=== PATIENT | male | born 2000 | race Caucasian/White ===

== ENCOUNTER 2020-01-01 23:09 | Inpatient (IN) ==
[2020-01-01] MEDS ORDERED: cefTRIAXone SODIUM 1,000 MG/50 ML BAG IV STA (23:32)
[2020-01-01] MEDS ORDERED: ONDANSETRON INJ 2 MG/ML 2 ML VIAL IV STA (23:32)
[2020-01-01] MEDS: fentaNYL citrate 100 MCG/2 ML VIAL IV PRN (23:44)
[2020-01-01] MEDS ORDERED: SODIUM CHLORIDE 0.9% 1000ML 1,000 ML IV SCH (23:45)
[2020-01-02 00:02] LABS: Basophils # (auto) 0.01 K/uL (0-0.2); Basophils % (auto) 0.1 %; Eosinophils # (auto) 0.07 K/uL (0-0.5); Eosinophils % (auto) 0.7 %; Hematocrit (blood only) 43.3 % (42-52); Immature Granulocytes # (auto) 0.01 K/uL (0.00-0.02); Immature Granulocytes % (auto) 0.1 %; Lymphocytes # (auto) 0.46 K/uL (1.2-3.4); Lymphocytes % (auto) 4.6 %; Mean Corpuscular Hgb Conc 34.6 g/dL (32-36); Mean Corpuscular Volume 92.3 fL (80-100); Mean Platelet Volume 10.5 fL (7.4-10.4); Monocytes # (auto) 1.37 K/uL (0.11-0.59); Monocytes % (auto) 13.7 %; Neutrophils # (auto) 8.08 K/uL (1.4-6.5); Neutrophils % (auto) 80.8 %; Platelet Count 181 K/uL (130-400); RDW Coefficient of Variation 12.9 % (11.5-14.5); RDW Standard Deviation 43.3 fL (36.4-46.3); Red Blood Count 4.69 M/uL (4.7-6.1)
[2020-01-02 00:15] LABS: Albumin Level 4.4 gm/dl (3.4-5.0); BUN Creatinine Ratio 10.2 (10-20); Calcium 9.5 mg/dl (8.5-10.1); Creatinine Clr Calc Pharmacy 92.2 ml/min; Est GFR (African American) 86.4; Est GFR (Non-African American) 74.5
[2020-01-02 00:18] LABS: Albumin Globulin Ratio 1.1 (0.9-2); Bilirubin,Total 0.7 mg/dl (0.2-1); C Reactive Protein 4.42 mg/dl (0-0.29); Globulin 3.9 gm/dl (2.5-4.0); Total Protein 8.3 gm/dl (6.4-8.2)
[2020-01-02] MEDS ORDERED: IOVERSOL 100ml IV PRN (00:54)
[2020-01-02] MEDS ORDERED: VANCOMYCIN HCL 1,500 MG in SODIUM CHLORIDE 0.9% 500 ML IV ONE (01:15)
[2020-01-02] MEDS ORDERED: VANCOMYCIN CONSULT ACTIVE PRN (01:15)
[2020-01-02] MEDS: fentaNYL citrate 100 MCG/2 ML VIAL IV PRN (01:45)
--- NOTE | 2020-01-02 01:57 | Emergency Department Note ---
Entered by Naa Novak acting as a scribe for History of Present Illness General Chief complaint: Eye Problems Stated complaint: RIGHT EYE INFECTION Time Seen by Provider: 01/01/20 23:20 Source: patient History of Present Illness Onset (ago): day(s) 4 Location: face and right Pain Consistency: + other (worsening ) Maximum Pain Intensity: 10 Quality: + other (swelling ) Associated symptoms: + fever/chills and + other (positive right facial redness; positive right facial pain; positive right facial drainage) Treatments prior to arrival: NSAID (ibuprofen ) and other (bactrim ) The patient is a 19 year old male who presents to the Emergency Room with complaints of a worsening right facial swelling that began 4 days prior to arrival. The patient reports that his swelling began as a pimple near his right eye. He states that this area is red and painful. The patient reports drainage from this area beginning today. He reports fevers and chills. The patient states that he has been on Bactrim for this and has had 5 doses. He reports taking Iburpofen for pain. The patient denies any medical history. Home Medications Home Medications Medication Instructions Recorded Confirmed Type ibuprofen 600 mg PO QID 01/02/20 01/02/20 History sulfamethoxazole-trimethoprim 1 tab PO BID 01/02/20 01/02/20 History Allergies Allergy/AdvReac Type Severity Reaction Status Date / Time No Known Allergies Allergy Unverified 01/02/20 01:44 Past Med/Surg History Medical History No significant past medical history Social History Preferred Language: Lithuanian Feels Safe at Home: Yes Smoking Status: Never smoker Review of Systems See HPI for pertinent positives & negatives. and A total of 10 systems reviewed and were otherwise negative Physical Exam Vital Signs Vital Signs - 24 hr 01/01/20 23:16 01/01/20 23:48 01/01/20 23:51 Temperature 37.6 C H Temperature Source Oral Pulse Rate 114 H 108 H 112 H Pulse Rate from SpO2 Sensor 108 H 110 H Respiratory Rate 22 20 13 Respiratory Depth Normal Blood Pressure 151/84 H 134/74 Blood Pressure Mean 106 93 Pulse Oximetry 100 100 100 Oxygen Delivery Method Room Air Sepsis Recent Fever Within 48 Hours No Sepsis New/Unexplained Change in Mental Status No Sepsis Action Taken by Nursing No Action Required 01/02/20 00:00 01/02/20 00:01 01/02/20 00:10 Temperature Temperature Source Pulse Rate 109 H 111 H 111 H Pulse Rate from SpO2 Sensor 111 H 111 H 112 H Respiratory Rate 17 12 20 Respiratory Depth Blood Pressure 170/98 H Blood Pressure Mean 124 Pulse Oximetry 98 99 97 Oxygen Delivery Method Sepsis Recent Fever Within 48 Hours Sepsis New/Unexplained Change in Mental Status Sepsis Action Taken by Nursing 01/02/20 00:20 01/02/20 00:52 01/02/20 01:00 Temperature Temperature Source Pulse Rate 108 H 123 H Pulse Rate from SpO2 Sensor 108 H 120 H 124 H Respiratory Rate 21 24 Respiratory Depth Blood Pressure 127/70 Blood Pressure Mean 79 Pulse Oximetry 98 100 99 Oxygen Delivery Method Sepsis Recent Fever Within 48 Hours Sepsis New/Unexplained Change in Mental Status Sepsis Action Taken by Nursing 01/02/20 01:01 01/02/20 01:10 01/02/20 01:40 Temperature Temperature Source Pulse Rate 124 H 117 H 120 H Pulse Rate from SpO2 Sensor 123 H 117 H 118 H Respiratory Rate 23 19 13 Respiratory Depth Blood Pressure Blood Pressure Mean Pulse Oximetry 99 98 99 Oxygen Delivery Method Sepsis Recent Fever Within 48 Hours Sepsis New/Unexplained Change in Mental Status Sepsis Action Taken by Nursing 01/02/20 01:41 Temperature Temperature Source Pulse Rate 111 H Pulse Rate from SpO2 Sensor 112 H Respiratory Rate 23 Respiratory Depth Blood Pressure 144/84 H Blood Pressure Mean 104 Pulse Oximetry 97 Oxygen Delivery Method Sepsis Recent Fever Within 48 Hours Sepsis New/Unexplained Change in Mental Status Sepsis Action Taken by Nursing GENERAL: The patient is awake and alert. He is very anxious appearing. EYES: The conjunctivae are clear. The pupils are round and reactive. There is no pain with range of motion testing of the eyes. There is significant periorbital swelling and erythema especially on the right eye. There is also an area lateral to the infraorbital swelling which is draining purulent material. Cultures were obtained. EARS, NOSE, MOUTH AND THROAT: The nose is without any evidence of any deformity. Mucous membranes are moist. Tongue is midline. NECK: The neck is nontender and supple. RESPIRATORY: Normal respiratory effort is noted there is no evidence of wheezing rhonchi or rales CARDIOVASCULAR: Regular rate and rhythm noted there no murmurs rubs or gallops normal S1 normal S2. GASTROINTESTINAL: The abdomen is soft. Abdomen is nontender. MUSCULOSKELETAL/EXTREMITIES: There is no evidence of gross deformity full range of motion is noted in the hips and shoulders. SKIN: No pedal edema was noted. NEUROLOGIC: Patient is awake alert and oriented x3 strength is symmetric patellar reflexes are 2+ bilaterally Course Course 2327: Past medical records reviewed. The patient was evaluated in room A9B. A complete history and physical exam was performed. 0121: I discussed the case with Dr. Jar[facility] Hospitalist who accepts the patient for further evaluation. Administered Medications Fentanyl Citrate (Fentanyl Citrate) 50 mcg IV Q15M PRN PRN Reason: Pain Stop: 01/15/20 23:31 Last Admin: 01/02/20 01:45 Dose: 50 mcg Documented by: [id number] Admin: 01/01/20 23:44 Dose: 50 mcg Documented by: [id number] Vancomycin HCl 1,500 mg/ (Sodium Chloride) 530 mls @ 200 mls/hr IV NOW ONE Stop: 01/02/20 03:53 Last Admin: 01/02/20 01:46 Dose: 200 mls/hr Documented by: [id number] Ioversol (Optiray 320 100ml) 100 ml IV ONCE PRN PRN Reason: Interaction Checking Stop: 01/06/20 00:53 Last Admin: 01/02/20 00:55 Dose: 92 ml Documented by: [id number] Discontinued Medications Sodium Chloride (Nss 1000ml) 1,000 mls @ 999 mls/hr IV .Q1H1M YAKOV Stop: 01/02/20 00:45 Last Infusion: 01/02/20 00:58 Dose: 0 mls/hr Documented by: [id number] Admin: 01/01/20 23:44 Dose: 999 mls/hr Documented by: [id number] Ceftriaxone Sodium (Rocephin) 1,000 mg in 50 mls @ 100 mls/hr IV NOW STA Stop: 01/02/20 00:01 Last Infusion: 01/02/20 00:58 Dose: 0 mls/hr Documented by: [id number] Admin: 01/01/20 23:58 Dose: 100 mls/hr Documented by: [id number] Ondansetron HCl (Zofran) 4 mg IV NOW STA Stop: 01/01/20 23:33 Last Admin: 01/01/20 23:44 Dose: 4 mg Documented by: [id number] Medical Decision Making Differential Diagnosis Differential diagnosis includes etiologies such as cellulitis, abscess, MRSA infection, DVT, necrotizing fasciitis, dermatitis, drug eruption, as well as others were entertained. Medical Records Attestation: I reviewed the patient's medical records. Home Medications Current Medication List: was personally reviewed by me Laboratory Data Attestation: I reviewed the patient's lab results. Result diagrams: 01/01/20 23:46 01/01/20 23:46 Lab Results 01/01/20 01/01/20 01/01/20 Range/Units 23:46 23:46 23:46 WBC 10.00 (4.8-10.8) K/uL RBC 4.69 L (4.7-6.1) M/uL Hgb 15.0 (14.0-18.0) g/dL Hct 43.3 (42-52) % MCV 92.3 (80-100) fL MCH 32.0 (25-34) pg MCHC 34.6 (32-36) g/dL RDW Std Deviation 43.3 (36.4-46.3) fL RDW Coeff of Ceci 12.9 (11.5-14.5) % Plt Count 181 (130-400) K/uL MPV 10.5 H (7.4-10.4) fL Immature Gran % (Auto) 0.1 % Neut % (Auto) 80.8 % Lymph % (Auto) 4.6 % Beaufort % (Auto) 13.7 % Eos % (Auto) 0.7 % Baso % (Auto) 0.1 % Immature Gran # (Auto) 0.01 (0.00-0.02) K/uL Neut # (Auto) 8.08 H (1.4-6.5) K/uL Lymph # (Auto) 0.46 L (1.2-3.4) K/uL Beau[place] # (Auto) 1.37 H (0.11-0.59) K/uL Eos # (Auto) 0.07 (0-0.5) K/uL Baso # (Auto) 0.01 (0-0.2) K/uL ESR 37 H (0-14) mm/hr Sodium 136 (136-145) mmol/L Potassium 4.0 (3.5-5.1) mmol/L Chloride 104 (98-107) mmol/L Carbon Dioxide 27 (21-32) mmol/L Anion Gap 5.0 (3-11) BUN 14 (7-18) mg/dl Creatinine 1.35 (0.6-1.4) mg/dl POC Creatinine (0.6-1.3) mg/dl Est Cr Clr Drug Dosing 92.2 ml/min Est GFR ( Amer) 86.4 Est GFR (Non-Af Amer) 74.5 BUN/Creatinine Ratio 10.2 (10-20) Glucose 110 H (70-99) mg/dl Calcium 9.5 (8.5-10.1) mg/dl Total Bilirubin 0.7 (0.2-1) mg/dl AST 10 L (15-37) U/L ALT 21 (12-78) U/L Alkaline Phosphatase 81 (45-117) U/L C-Reactive Protein 4.42 H (0-0.29) mg/dl Total Protein 8.3 H (6.4-8.2) gm/dl Albumin 4.4 (3.4-5.0) gm/dl Globulin 3.9 (2.5-4.0) gm/dl Albumin/Globulin Ratio 1.1 (0.9-2) Procalcitonin (0-0.5) ng/ml 01/01/20 01/02/20 Range/Units 23:46 00:03 WBC (4.8-10.8) K/uL RBC (4.7-6.1) M/uL Hgb (14.0-18.0) g/dL Hct (42-52) % MCV (80-100) fL MCH (25-34) pg MCHC (32-36) g/dL RDW Std Deviation (36.4-46.3) fL RDW Coeff of Ceci (11.5-14.5) % Plt Count (130-400) K/uL MPV (7.4-10.4) fL Immature Gran % (Auto) % Neut % (Auto) % Lymph % (Auto) % Beaufort % (Auto) % Eos % (Auto) % Baso % (Auto) % Immature Gran # (Auto) (0.00-0.02) K/uL Neut # (Auto) (1.4-6.5) K/uL Lymph # (Auto) (1.2-3.4) K/uL Beau[place] # (Auto) (0.11-0.59) K/uL Eos # (Auto) (0-0.5) K/uL Baso # (Auto) (0-0.2) K/uL ESR (0-14) mm/hr Sodium (136-145) mmol/L Potassium (3.5-5.1) mmol/L Chloride (98-107) mmol/L Carbon Dioxide (21-32) mmol/L Anion Gap (3-11) BUN (7-18) mg/dl Creatinine (0.6-1.4) mg/dl POC Creatinine 1.2 (0.6-1.3) mg/dl Est Cr Clr Drug Dosing ml/min Est GFR ( Amer) Est GFR (Non-Af Amer) BUN/Creatinine Ratio (10-20) Glucose (70-99) mg/dl Calcium (8.5-10.1) mg/dl Total Bilirubin (0.2-1) mg/dl AST (15-37) U/L ALT (12-78) U/L Alkaline Phosphatase (45-117) U/L C-Reactive Protein (0-0.29) mg/dl Total Protein (6.4-8.2) gm/dl Albumin (3.4-5.0) gm/dl Globulin (2.5-4.0) gm/dl Albumin/Globulin Ratio (0.9-2) Procalcitonin 0.17 (0-0.5) ng/ml Imaging Data Radiologist's Impression: Radiology results as stated below per my review and th e radiologist's interpretation: CT FACIAL: Diffuse skin thickening and soft tissue swelling/edema in the right periorbital and right facial region concerning for soft tissue infection/cellulitis. Small peripherally enhancing fluid collection containing a single focus of gas in the right preseptal region, immediately anterior to the right globe measuring 11 x 23 x 5 mm concerning for preseptal infection and abscess. The right globe is symmetric with the left globe. No definite retro-orbital fat stranding or fluid. Radiologist: Timo Chavarria MD Study ready at 00:56 and initial results transmitted at 01:12 Blood Pressure Blood Pressure Findings: Elevated blood pressure Blood Pressure Disposition: further management by hospitalist MDM Narrative The patient is a 19-year-old male who presented to the emergency department for an evaluation of eye swelling. The patient noticed a small pimple beneath his right eye that he squeezed. After that episode he started noticing severe swelling. Currently the patient is incarcerated at the [facility]. He was started on Bactrim but his symptoms continue to worsen. On physical exam he has some drainage on the lateral aspect of the inferior orbital swelling. A good amount of purulent material was removed. The patient was treated with IV antibiotics in the emergency department. I discussed the patient's laboratory and radiographic studies with him. He was feeling somewhat improved on reevaluation. I discussed his case with the on-call [facility] hospitalist group. They have agreed to evaluate the patient in the emergency department for further management disposition. Impression & Plan Periorbital cellulitis, Facial abscess Discharge Plan Visit Data Chief Complaint: Eye Problems Stated Complaint: RIGHT EYE INFECTION ED Provider: Davon Coleman Discharge Problem: Periorbital cellulitis, Facial abscess Patient Disposition: Being Evaluated by Hospitalist Discharge Instructions Interventions: ED Discharge Assessment Last Done: 01/02/20 02:33 Forms Stand Alone Forms: My [facility] Prescriptions Prescriptions: No Action sulfamethoxazole-trimethoprim 800-160 mg Tablet 1 tab PO BID RF: 0 ibuprofen 600 mg Tablet 600 mg PO QID RF: 0 Referrals Referrals: Nicol MARIA [Primary Care Provider] - Discharge Problem: Periorbital cellulitis Qualifiers: Laterality: right Qualified Code(s): L03.213 - Periorbital cellulitis The scribe's documentation has been prepared under my direction and personally reviewed by me in its entirety. I confirm that the note above accurately reflects all work, treatment, procedures, and medical decision making performed by me.
--- NOTE | 2020-01-02 02:26 | History & Physical Report ---
Date of Service January 02, 2020 Assessment & Plan (1) Periorbital cellulitis: Alvin is a 19-year-old male with no past medical history who presents with 2 days of worsening right periorbital cellulitis. Right periorbital cellulitis CT face: Right periorbital and right facial diffuse skin thickening and soft tissue swelling/edema. Small enhancing fluid collection and a single focus of gas, draining. Additional focus concerning for preseptal cellulitis and abscess. No retro-orbital fat stranding or fluid. Clinical course and imaging consistent with right periorbital cellulitis without retro-orbital infection. Vancomycin IV Ophthalmology consulted General surgery consulted for potential I&D CBC daily Morphine 2 mg every 3 hours as needed for pain Tylenol 650mg every 4 hours Diet: N.p.o. IVF: NSS 100 cc/h DVT prophylaxis SCDs Position: Med/surg (2) Facial abscess: History of Present Illness Chief Complaint: Right periorbital cellulitis Primary Care Provider: CROW Esquivel is a 18-year-old male inmate of [facility] with no past medical history who presents with right orbital cellulitis. He reports that on Sunday he had a pimple around his eye and attempted to pop it, but had difficulty getting pus out of it. He reports that he tried very hard and applied a lot of pressure to pop it but he had recently been cleaning his boots so he thinks he rubbed both blue yi and dirt into it. Following that it became painful and red, and the swelling gradually increased until it rapidly worsened day of presentation to the emergency department. He endorses pain in his right eye on extraocular movements. He is unable to see out of his right eye due to swelling, unable to open his eyelids. He has been nauseous. He denies diarrhea or constipation. Denies fever, chills, sweats. No shortness of breath or chest pain. Denies other symptoms. Medical history: None Medical allergies: Denies Surgical history: None Social: Inmate of [facility]. No alcohol use in over a year. Denies tobacco use. Denies recreational drug use. Reports his medical decision-maker should he be capacitated is Joce Kyle (mother of his child) who can be reached at [phone]. 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 Feels Safe at Home: Yes Safety Concerns: Feels Safe At This Time Smoking Status: Never smoker Hx Alcohol Use: No Hx Substance Use: Yes substance use type: marijuana Last Used Substance Other:: Smoked about a year ago. Review of Systems Review of Systems: All systems reviewed & are unremarkable except as noted in HPI & below Physical Exam Physical Exam: General: A&Ox3. Cooperative. HEENT: Right eye with prominent periorbital swelling, erythema, and warmth. Infraorbital skin lesion draining clear and purulent material. Fluctuance appreciated without crepitus. Patient unable to open eye on his own, with gentle physical lid separation pupil is visualized and is reactive, non-clouded. EOM intact but with pain in the right eye. Pulm: CTAB A&P. -wheezes, -rales, -rhonchi. Symmetrical chest rise. No increase work of breathing. No respiratory distress. Cardiac: RRR, -mrg. Radial pulses intact and symmetrical. Abdominal: Nontender, nondistended, soft. BS present. Results & Data Vital Signs (Past 12 Hours) Vital Signs Temp Pulse Resp BP Pulse Ox 01/02/20 01:41 111 H 23 144/84 H 97 01/02/20 01:40 120 H 13 99 01/02/20 01:10 117 H 19 98 01/02/20 01:01 124 H 23 99 01/02/20 01:00 123 H 24 127/70 99 01/02/20 00:52 100 01/02/20 00:20 108 H 21 98 01/02/20 00:10 111 H 20 97 01/02/20 00:01 111 H 12 99 01/02/20 00:00 109 H 17 170/98 H 98 01/01/20 23:51 112 H 13 100 01/01/20 23:48 108 H 20 134/74 100 01/01/20 23:16 37.6 C H 114 H 22 151/84 H 100 Supervising Physician Co-Signing Physician Notes Patient was seen and examined by me personally. I reviewed the chart, the orders and discussed the case in detail with Dr. David He MD . I read this H&P and agree with its contents to entirety. Resident Activity Tracking Resident Involvement: Resident Care Provided Care Provided: Adult Hospital Medicine (1) Periorbital cellulitis Laterality: right Qualified Code(s): L03.213 - Periorbital cellulitis
[2020-01-02] MEDS ORDERED: ACETAMINOPHEN 325 MG TAB PO PRN (03:01)
[2020-01-02] MEDS: CLINDAMYCIN 600 MG in DEXTROSE 5% 50 ML IV SCH ×2 (05:07→16:05)
--- NOTE | 2020-01-02 06:39 | Pharmacy Report ---
Pharmacy Abx Initial Consult - Date of Service January 02, 2020 - Pharmacy Dosing Scope Date of Consult: 01/02/20 Consultation requested by: Dr. He Pharmacy is consulted to initiate Vancomycin IV dosing therapy, order appropriate labs and adjust drug dose/frequency. - Subjective The patient is a 19 year old M admitted on 01/02/20 02:25 from [facility] with Periorbital Cellulitis over his eye. He stated he had a pimple and he tried really hard to pop it then it became even worse. He presents to the ED for admission where Dr. He ordered Clindamycin and Vancomycin IV per consult. - Objective Height: 5 ft 11 in Weight: 73.8 kg Vital Signs (Past 12hrs): Vital Signs Temp Pulse Pulse Pulse Resp BP BP 01/02/20 04:48 107 H 16 01/02/20 03:04 37.5 C 125 H 16 121/65 01/02/20 02:37 160/87 H 01/02/20 02:31 118 H 17 01/02/20 02:30 120 H 17 01/02/20 02:20 122 H 16 01/02/20 02:10 115 H 15 01/02/20 02:00 117 H 13 180/84 H 01/02/20 01:50 110 H 19 01/02/20 01:41 111 H 23 144/84 H 01/02/20 01:40 120 H 13 01/02/20 01:10 117 H 19 01/02/20 01:01 124 H 23 01/02/20 01:00 123 H 24 127/70 01/02/20 00:52 01/02/20 00:20 108 H 21 01/02/20 00:10 111 H 20 01/02/20 00:01 111 H 12 01/02/20 00:00 109 H 17 170/98 H 01/01/20 23:51 112 H 13 01/01/20 23:48 108 H 20 134/74 01/01/20 23:16 37.6 C H 114 H 22 151/84 H Pulse Ox 01/02/20 04:48 98 01/02/20 03:04 98 01/02/20 02:37 01/02/20 02:31 98 01/02/20 02:30 97 01/02/20 02:20 98 01/02/20 02:10 98 01/02/20 02:00 98 01/02/20 01:50 95 01/02/20 01:41 97 01/02/20 01:40 99 01/02/20 01:10 98 01/02/20 01:01 99 01/02/20 01:00 99 01/02/20 00:52 100 01/02/20 00:20 98 01/02/20 00:10 97 01/02/20 00:01 99 01/02/20 00:00 98 01/01/20 23:51 100 01/01/20 23:48 100 01/01/20 23:16 100 Lab Results (24hrs): Laboratory Tests (24 Hours) 01/01/20 01/01/20 01/01/20 23:46 23:46 23:46 WBC Neut # (Auto) ESR 37 H Creatinine 1.35 Est Cr Clr Drug Dosing 92.2 C-Reactive Protein 4.42 H Procalcitonin 0.17 01/01/20 23:46 WBC 10.00 Neut # (Auto) 8.08 H ESR Creatinine Est Cr Clr Drug Dosing C-Reactive Protein Procalcitonin Micro Results: 01/01/20 23:30 Gram Stain - Pending Face Wound Culture - Pending - Risk Factors for Resistance * Resident in a fci or extended-care facility - Assessment & Plan Assessment 19 year old M with periorbital cellulitis Plan Vancomycin IV * Estimated PK Parameters: Vd 0.7 L/kg, Brady 0.081 hr-1, t1/2 8.8 hr * Loading dose: 1500 mg (~20 mg/kg) * Maintenance dose: 1250 mg IV (17 mg/kg) every 10 hours * Goal trough level : at least 15 mcg/mL * Trough level ordered prior to 1800 dose on 01/03/20 Pharmacy will continue to follow and will adjust dose/frequency as necessary. Thank you.
--- NOTE | 2020-01-02 06:58 | Billing Data ---
Date of Service January 02, 2020 Coding Level of Care Code 86279 Initial Inpt Care Lvl 3
[2020-01-02 07:09] LABS: Creatinine Clr Calc Pharmacy 105.2 ml/min; Est GFR (African American) 103.8; Est GFR (Non-African American) 89.5
--- NOTE | 2020-01-02 07:49 | CT Scan Report ---
CT facial bones w con CLINICAL HISTORY: 19 years-old Male presenting with right periorbital infection, redness and swelling , yellow drainage from the skin near the right eye, swollen eye. TECHNIQUE: Multidetector CT of the face was performed after the administration of intravenous contras t. IV contrast: 92 mL of Optiray 320. One or more dose lowering techniques were used consistent with the principles of ALARA (as low as reasonably achievable), including automatic exposure control, mA o r kV adjustment to individual patient size, and/or use of iterative reconstruction. COMPARISON: None. CT DOSE (mGy.cm): The estimated cumulative dose is 248.65 mGy.cm. FINDINGS: Keypunch Operators Supervisor topogram: Unremarkable. Extensive superficial soft tissue swelling and infiltration of the right face extending from the amparo andibular region to the right frontal scalp. This is primarily centered in the right periorbital fredi on. There is a significant degree of soft tissue fluid in the periorbital region on the right. There is also fluid and gas immediately superficial to the right globe possibly contained within the eyelid s. The right globe itself is normal. No post septal fat infiltration. The contents of the right orbit are normal. The left orbit is also normal. Patent vasculature. Grossly patent right cavernous sinus allowing for the phase of contrast. Limited intracranial evaluation within normal limits. Paranasal sinuses and mastoid air cells clear apart fro m trace polypoid mucosal thickening in the left maxillary sinus. The left mandibular central incisor is absent with the remainder of the teeth intact. Subcentimeter cervical lymph nodes are likely react vivian. Visualized portion of the aerodigestive tract patent. No filtration of the deeper fat planes. IMPRESSION: 1. Exuberant inflammatory changes in the right periorbital region and right face compatible with pre septal cellulitis and phlegmonous changes. 2. The fluid and gas immediately anterior to the right globe is likely contained within the eyelids. 3. No evidence to suggest post septal/orbital cellulitis. ACT 112: Negative or not required by law. Electronically signed by: David Riley M.D. 01/02/2020 7:47 AM
[2020-01-02] MEDS: MoRPHine SULFATE 2 MG/ML CARP IV PRN (08:06)
--- NOTE | 2020-01-02 08:46 | ENT Consultation ---
Date of Consultation January 02, 2020 Assessment & Plan (1) Facial abscess: immediate I and D needed History of Present Illness Reason for Consultation: abcess Attending Physician: Fanny Sorto MD History of Present Illness 19 yo R facial able unable to open R eye Allergies Allergy/AdvReac Type Severity Reaction Status Date / Time No Known Allergies Allergy Unverified 01/02/20 01:44 Home Medications Home Medications Medication Instructions Recorded Confirmed Type ibuprofen 600 mg PO QID 01/02/20 01/02/20 History sulfamethoxazole-trimethoprim 1 tab PO BID 01/02/20 01/02/20 History Patient History Medical History No significant past medical history Social History Preferred Language: Azerbaijani Communication Ability: Dyslexia 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 Feels Safe at Home: Yes Safety Concerns: Feels Safe At This Time Smoking Status: Never smoker Hx Alcohol Use: No Hx Substance Use: Yes substance use type: marijuana Last Used Substance Other:: Smoked about a year ago. Physical Exam Constitutional: + acute distress and + ill appearing Eyes: + eyelid abnormality (severe swelling, tender, unable to open even by me with force) ENMT: Nose: + facial exam abnormality (draining fistula right cheek, 3 cm fluctuent but tense swellin, red) Results & Data ([facility]) Vital Signs (Past 12 Hours) Vital Signs Temp Pulse Pulse Pulse Resp BP BP 01/02/20 08:00 38.8 C H 111 H 18 119/71 01/02/20 04:48 107 H 16 01/02/20 03:04 37.5 C 125 H 16 121/65 01/02/20 02:37 160/87 H 01/02/20 02:31 118 H 17 01/02/20 02:30 120 H 17 01/02/20 02:20 122 H 16 01/02/20 02:10 115 H 15 01/02/20 02:00 117 H 13 180/84 H 01/02/20 01:50 110 H 19 01/02/20 01:41 111 H 23 144/84 H 01/02/20 01:40 120 H 13 02/14/20 01:10 117 H 19 01/02/20 01:01 124 H 23 01/02/20 01:00 123 H 24 127/70 01/02/20 00:52 01/02/20 00:20 108 H 21 01/02/20 00:10 111 H 20 01/02/20 00:01 111 H 12 01/02/20 00:00 109 H 17 170/98 H 01/01/20 23:51 112 H 13 01/01/20 23:48 108 H 20 134/74 01/01/20 23:16 37.6 C H 114 H 22 151/84 H Pulse Ox 01/02/20 08:00 97 01/02/20 04:48 98 01/02/20 03:04 98 01/02/20 02:37 01/02/20 02:31 98 01/02/20 02:30 97 01/02/20 02:20 98 01/02/20 02:10 98 01/02/20 02:00 98 01/02/20 01:50 95 01/02/20 01:41 97 01/02/20 01:40 99 01/02/20 01:10 98 01/02/20 01:01 99 01/02/20 01:00 99 01/02/20 00:52 100 01/02/20 00:20 98 01/02/20 00:10 97 01/02/20 00:01 99 01/02/20 00:00 98 01/01/20 23:51 100 01/01/20 23:48 100 01/01/20 23:16 100
--- NOTE | 2020-01-02 09:12 | Anesthesiology Consultation ---
Date of Service January 02, 2020 Assessment & Plan (1) Encounter for pre-operative examination: Chart Review Chart Review: Acceptable Risk for Surgery and Patient NOT seen in Pre Admission Testing Consults Requested none ASA [id number] Proposed Anesthesia Anesthesia Type: General Risk / Benefits Reviewed With: PT / POA / Parent / Guardian, Accepts Plan and Informed Consent Obtained History Surgery Operation Date: 01/02/20 09:40 Proposed Procedures p Right Face Abscess Incision and Drainage - Yeni Gonzalez MD Height/Weight Height: 5 ft 11 in Weight: 73.8 kg Allergies Allergy/AdvReac Type Severity Reaction Status Date / Time No Known Allergies Allergy Unverified 01/02/20 01:44 Medications Home Medications Medication Instructions Recorded Confirmed Last Taken ibuprofen 600 mg PO QID 01/02/20 01/02/20 Unknown sulfamethoxazole-trimethoprim 1 tab PO BID 01/02/20 01/02/20 Unknown Active Medications Generic Name Dose Route Start Last Admin Trade Name Freq PRN Reason Stop Dose Admin Clindamycin Phosphate 600 mg/ 54 mls @ 100 mls/hr 01/02/20 04:00 01/02/20 05:52 Dextrose IV 01/12/20 03:59 Infused Q8H YAKOV Infusion Morphine Sulfate 2 mg 01/02/20 03:01 01/02/20 08:06 Morphine Sulfate IV 01/16/20 03:00 2 mg Q3H PRN Administration Pain NPO Date Last Intake of Fluids: 01/01/20 Time Last Intake of Fluids: 22:00 Date Last Intake of Solids: 01/01/20 Time Last Intake of Solids: 17:00 Past Medical History Medical History No significant past medical history Exercise / Class Metabolic Activity II 4-5 Yardwork/Stairs/Walk up hill Past Anesthesia History No Family Hx of Anesthesia Complications History of PONV No Hx of Motion Sickness Social History Smoking Status: Never smoker Hx Alcohol Use: No Hx Substance Use: Yes substance use type: marijuana Last Used Substance Other:: Smoked about a year ago. Review of Systems Positive for nausea Negative for chest pain or shortness of breath. Physical Exam Vital Signs Last Vital Signs Temp 39 C H 01/02/20 09:21 Pulse 111 H 01/02/20 09:21 Resp 20 01/02/20 09:21 BP 127/67 01/02/20 09:21 Pulse Ox 99 01/02/20 09:21 Constitutional not obese ENMT Mouth: + TMJ abnormality (Trizmus due to infection) and + small oral opening (Due to infection) Thyromental Distance: > or= 3.5 Finger Breadths Mallampati Class: III (Limited view due to infection) Neck normal visual inspection; neck extension not limited Respiratory normal respiratory effort Auscultation: lungs clear to auscultation bilaterally Cardiovascular Rate/Rhythm: regular rate and regular rhythm Heart Sounds: no murmur Neurologic moves all extremities Psychiatric Orientation: alert and oriented x 3 Testing Laboratory Results 01/01/20 23:46 01/02/20 06:41
[2020-01-02] MEDS ORDERED: STERILE IRRIGATING OPTH SOLUTION (BSS) 15ML ONE (09:32)
[2020-01-02] MEDS ORDERED: HYDROmorphone INJ 2 MG/ML SYR/VIAL IV PRN (09:36)
[2020-01-02] MEDS ORDERED: ATROPINE SULFATE 0.1 MG/ML 10ML SYR IV PRN (09:36)
[2020-01-02] MEDS ORDERED: fentaNYL citrate 100 MCG/2 ML VIAL IV PRN (09:36)
[2020-01-02] MEDS ORDERED: ONDANSETRON INJ 2 MG/ML 2 ML VIAL IV PRN (09:36)
[2020-01-02] MEDS ORDERED: ePHEDrine sulfate 50 MG/ML AMP IV PRN (09:36)
[2020-01-02] MEDS ORDERED: PROMETHAZINE HCL 12.5 MG in SODIUM CHLORIDE 0.9% 50 ML IV PRN (09:36)
[2020-01-02] MEDS ORDERED: fentaNYL citrate 100 MCG/2 ML VIAL ONE (09:51)
[2020-01-02] MEDS ORDERED: ONDANSETRON INJ 2 MG/ML 2 ML VIAL ONE (09:51)
[2020-01-02] MEDS ORDERED: GLYCOPYRROLATE 0.2 MG/ML VIAL ONE (09:51)
[2020-01-02] MEDS ORDERED: DEXAMETHASONE SOD INJ 4 MG/ML VIAL ONE (09:51)
[2020-01-02] MEDS ORDERED: MIDAZOLAM HCL 1 MG/ML 2ML VIAL ONE (09:51)
[2020-01-02] MEDS ORDERED: NEOSTIGMINE METHYLSULFATE 5 MG/5 ML SYR ONE (09:51)
[2020-01-02] MEDS ORDERED: PROPOFOL IV EMULSION 10 MG/ML 20 ML VIAL IV ONE (09:51)
[2020-01-02] MEDS ORDERED: LIDOCAINE HCL 2% 2 ML VIAL/AMP(20MG/ML) INFIL ONE (09:51)
[2020-01-02] MEDS ORDERED: DexMEDEtomidine HCL IV 100 MCG/ML VIAL ONE (09:59)
[2020-01-02] MEDS ORDERED: VANCOMYCIN HCL 1,250 MG in SODIUM CHLORIDE 0.9% 250 ML IV SCH ×2 (10:00→12:00)
[2020-01-02] MEDS ORDERED: ACETAMINOPHEN 1000 MG/100 ML IV IV ONE (10:13)
--- NOTE | 2020-01-02 10:51 | Operative Report ---
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 The incision was made at the site of drainage widening the drainage site with a #11 blade. The abscess cavity was probed using a mosquito hemostat following the track into the infraorbital region and breaking up all the loculations and then irrigating the abscess cavity clean after taking cultures. The abscess cavity was packed with iodoform gauze. He tolerated the procedure well was taken recovery in satisfactory condition. I attest to the content of the Intraoperative Record and any orders documented therein. Any exceptions are noted below.
[2020-01-02] MEDS ORDERED: LARYING-O-JET KIT (LTA) ONE (11:10)
[2020-01-02] MEDS ORDERED: SUCCINYLCHOLINE CHLORIDE 20 MG/ML 10 ML VIAL ONE (11:10)
[2020-01-02] MEDS ORDERED: ROCURONIUM BROMIDE 10 MG/ML 5 ML VIAL ONE (11:10)
--- NOTE | 2020-01-02 11:30 | Anesthesiology Progress Note ---
Date of Service January 02, 2020 Anesthesia Post Procedure Vital Signs Vital Signs: Temp Pulse Pulse Pulse Pulse Resp BP 01/02/20 11:25 103 H 18 01/02/20 11:15 103 H 19 01/02/20 11:05 105 H 19 01/02/20 10:58 38.0 C H 108 H 20 01/02/20 09:21 39 C H 111 H 20 01/02/20 08:00 38.8 C H 111 H 18 01/02/20 04:48 107 H 16 01/02/20 03:04 37.5 C 125 H 16 01/02/20 02:37 160/87 H 01/02/20 02:31 118 H 17 01/02/20 02:30 120 H 17 01/02/20 02:20 122 H 16 01/02/20 02:10 115 H 15 01/02/20 02:00 117 H 13 180/84 H 01/02/20 01:50 110 H 19 01/02/20 01:41 111 H 23 144/84 H 01/02/20 01:40 120 H 13 01/02/20 01:10 117 H 19 01/02/20 01:01 124 H 23 01/02/20 01:00 123 H 24 127/70 01/02/20 00:52 01/02/20 00:20 108 H 21 01/02/20 00:10 111 H 20 01/02/20 00:01 111 H 12 01/02/20 00:00 109 H 17 170/98 H 01/01/20 23:51 112 H 13 01/01/20 23:48 108 H 20 134/74 01/01/20 23:16 37.6 C H 114 H 22 151/84 H BP Pulse Ox 01/02/20 11:25 91/50 L 95 01/02/20 11:15 92/47 L 98 01/02/20 11:05 89/49 L 92 01/02/20 10:58 98/49 L 98 01/02/20 09:21 127/67 99 01/02/20 08:00 119/71 97 01/02/20 04:48 98 01/02/20 03:04 121/65 98 01/02/20 02:37 01/02/20 02:31 98 01/02/20 02:30 97 01/02/20 02:20 98 01/02/20 02:10 98 01/02/20 02:00 98 01/02/20 01:50 95 01/02/20 01:41 97 01/02/20 01:40 99 01/02/20 01:10 98 01/02/20 01:01 99 01/02/20 01:00 99 01/02/20 00:52 100 01/02/20 00:20 98 01/02/20 00:10 97 01/02/20 00:01 99 01/02/20 00:00 98 01/01/20 23:51 100 01/01/20 23:48 100 01/01/20 23:16 100 Pain Intensity Right Eye: Pain Intensity: 10 Transfer of Care Handoff Completed per policy Notes Mental Status: alert / awake / arousable and participated in evaluation Patient Amnestic to Procedure: Yes Nausea / Vomiting: adequately controlled Pain: adequately controlled Airway Patency, RR, SpO2: stable & adequate BP & HR: stable & adequate Hydration State: stable & adequate Anesthetic Complications: no major complications apparent and Pt Satisfied with anesthetic care
--- NOTE | 2020-01-02 11:39 | Surgery Consultation ---
Date of Consultation January 02, 2020 Assessment & Plan (1) Periorbital cellulitis: This patient has periorbital cellulitis with abscess formation. I feel it would be best managed by either ophthalmology or ENT. Thank you for allowing me to participate in this patient's care. I will sign off. Please let me know if there is any other services we can provide. History of Present Illness Reason for Consultation: We have been asked by Dr. Sorto to see this 19-year-old male who was admitted to the hospital with periorbital cellulitis. The patient states that he was "picking a zit" underneath and lateral to his right a 3 days ago. Following that he began to develop pain and swelling around the entire eye. There was some drainage from the area that he had been manipulating. He has had fever. He has never had a history of anything like this in the past. 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 Feels Safe at Home: Yes Safety Concerns: Feels Safe At This Time Smoking Status: Never smoker Hx Alcohol Use: No Hx Substance Use: Yes substance use type: marijuana Last Used Substance Other:: Smoked about a year ago. Review of Systems Review of Systems: All systems reviewed & are unremarkable except as noted in HPI & below Physical Exam Constitutional: well developed and well nourished Eyes: Severe erythema and swelling of the entire right periorbital region with a small amount of purulent drainage from a pinhole opening on the lateral aspect of the infraorbital ridge Neck: trachea midline Respiratory: normal respiratory effort, lungs clear to auscultation Cardiovascular: Rate/Rhythm: regular rate and regular rhythm Gastrointestinal (Abdomen): Inspection/Auscultation: normal bowel sounds; abdomen not distended Percussion/Palpation: abdomen soft; abdomen nontender Results & Data Vital Signs (Past 12 Hours) Vital Signs Temp Pulse Pulse Pulse Pulse Resp BP 01/02/20 11:25 103 H 18 01/02/20 11:15 103 H 19 01/02/20 11:05 105 H 19 01/02/20 10:58 38.0 C H 108 H 20 01/02/20 09:21 39 C H 111 H 20 01/02/20 08:00 38.8 C H 111 H 18 01/02/20 04:48 107 H 16 01/02/20 03:04 37.5 C 125 H 16 01/02/20 02:37 160/87 H 01/02/20 02:31 118 H 17 01/02/20 02:30 120 H 17 01/02/20 02:20 122 H 16 01/02/20 02:10 115 H 15 01/02/20 02:00 117 H 13 180/84 H 01/02/20 01:50 110 H 19 01/02/20 01:41 111 H 23 144/84 H 01/02/20 01:40 120 H 13 01/02/20 01:10 117 H 19 01/02/20 01:01 124 H 23 01/02/20 01:00 123 H 24 127/70 01/02/20 00:52 01/02/20 00:20 108 H 21 01/02/20 00:10 111 H 20 01/02/20 00:01 111 H 12 01/02/20 00:00 109 H 17 170/98 H 01/01/20 23:51 112 H 13 01/01/20 23:48 108 H 20 134/74 BP Pulse Ox 01/02/20 11:25 91/50 L 95 01/02/20 11:15 92/47 L 98 01/02/20 11:05 89/49 L 92 01/02/20 10:58 98/49 L 98 01/02/20 09:21 127/67 99 01/02/20 08:00 119/71 97 01/02/20 04:48 98 01/02/20 03:04 121/65 98 01/02/20 02:37 01/02/20 02:31 98 01/02/20 02:30 97 01/02/20 02:20 98 01/02/20 02:10 98 01/02/20 02:00 98 01/02/20 01:50 95 01/02/20 01:41 97 01/02/20 01:40 99 01/02/20 01:10 98 01/02/20 01:01 99 01/02/20 01:00 99 01/02/20 00:52 100 01/02/20 00:20 98 01/02/20 00:10 97 01/02/20 00:01 99 01/02/20 00:00 98 01/01/20 23:51 100 01/01/20 23:48 100 Laboratory Results 01/02/20 01/02/20 01/02/20 Range/Units 06:41 03:27 00:03 WBC (4.8-10.8) K/uL RBC (4.7-6.1) M/uL Hgb (14.0-18.0) g/dL Hct (42-52) % MCV (80-100) fL MCH (25-34) pg MCHC (32-36) g/dL RDW Std Deviation (36.4-46.3) fL RDW Coeff of Ceci (11.5-14.5) % Plt Count (130-400) K/uL MPV (7.4-10.4) fL Immature Gran % (Auto) % Neut % (Auto) % Lymph % (Auto) % Barber % (Auto) % Eos % (Auto) % Baso % (Auto) % Immature Gran # (Auto) (0.00-0.02) K/uL Neut # (Auto) (1.4-6.5) K/uL Lymph # (Auto) (1.2-3.4) K/uL Barber # (Auto) (0.11-0.59) K/uL Eos # (Auto) (0-0.5) K/uL Baso # (Auto) (0-0.2) K/uL ESR (0-14) mm/hr Sodium (136-145) mmol/L Potassium (3.5-5.1) mmol/L Chloride (98-107) mmol/L Carbon Dioxide (21-32) mmol/L Anion Gap (3-11) BUN (7-18) mg/dl Creatinine 1.16 (0.6-1.4) mg/dl POC Creatinine 1.2 (0.6-1.3) mg/dl Est Cr Clr Drug Dosing 105.2 ml/min Est GFR ( Amer) 103.8 Est GFR (Non-Af Amer) 89.5 BUN/Creatinine Ratio (10-20) Glucose (70-99) mg/dl Calcium (8.5-10.1) mg/dl Total Bilirubin (0.2-1) mg/dl AST (15-37) U/L ALT (12-78) U/L Alkaline Phosphatase (45-117) U/L C-Reactive Protein (0-0.29) mg/dl Total Protein (6.4-8.2) gm/dl Albumin (3.4-5.0) gm/dl Globulin (2.5-4.0) gm/dl Albumin/Globulin Ratio (0.9-2) Procalcitonin (0-0.5) ng/ml Nasal Screen MRSA (PCR) Negative (Negative) 01/01/20 01/01/20 01/01/20 Range/Units 23:46 23:46 23:46 WBC (4.8-10.8) K/uL RBC (4.7-6.1) M/uL Hgb (14.0-18.0) g/dL Hct (42-52) % MCV (80-100) fL MCH (25-34) pg MCHC (32-36) g/dL RDW Std Deviation (36.4-46.3) fL RDW Coeff of Ceci (11.5-14.5) % Plt Count (130-400) K/uL MPV (7.4-10.4) fL Immature Gran % (Auto) % Neut % (Auto) % Lymph % (Auto) % Barber % (Auto) % Eos % (Auto) % Baso % (Auto) % Immature Gran # (Auto) (0.00-0.02) K/uL Neut # (Auto) (1.4-6.5) K/uL Lymph # (Auto) (1.2-3.4) K/uL Barber # (Auto) (0.11-0.59) K/uL Eos # (Auto) (0-0.5) K/uL Baso # (Auto) (0-0.2) K/uL ESR 37 H (0-14) mm/hr Sodium 136 (136-145) mmol/L Potassium 4.0 (3.5-5.1) mmol/L Chloride 104 (98-107) mmol/L Carbon Dioxide 27 (21-32) mmol/L Anion Gap 5.0 (3-11) BUN 14 (7-18) mg/dl Creatinine 1.35 (0.6-1.4) mg/dl POC Creatinine (0.6-1.3) mg/dl Est Cr Clr Drug Dosing 92.2 ml/min Est GFR ( Amer) 86.4 Est GFR (Non-Af Amer) 74.5 BUN/Creatinine Ratio 10.2 (10-20) Glucose 110 H (70-99) mg/dl Calcium 9.5 (8.5-10.1) mg/dl Total Bilirubin 0.7 (0.2-1) mg/dl AST 10 L (15-37) U/L ALT 21 (12-78) U/L Alkaline Phosphatase 81 (45-117) U/L C-Reactive Protein 4.42 H (0-0.29) mg/dl Total Protein 8.3 H (6.4-8.2) gm/dl Albumin 4.4 (3.4-5.0) gm/dl Globulin 3.9 (2.5-4.0) gm/dl Albumin/Globulin Ratio 1.1 (0.9-2) Procalcitonin 0.17 (0-0.5) ng/ml Nasal Screen MRSA (PCR) (Negative) 01/01/20 Range/Units 23:46 WBC 10.00 (4.8-10.8) K/uL RBC 4.69 L (4.7-6.1) M/uL Hgb 15.0 (14.0-18.0) g/dL Hct 43.3 (42-52) % MCV 92.3 (80-100) fL MCH 32.0 (25-34) pg MCHC 34.6 (32-36) g/dL RDW Std Deviation 43.3 (36.4-46.3) fL RDW Coeff of Ceci 12.9 (11.5-14.5) % Plt Count 181 (130-400) K/uL MPV 10.5 H (7.4-10.4) fL Immature Gran % (Auto) 0.1 % Neut % (Auto) 80.8 % Lymph % (Auto) 4.6 % Barber % (Auto) 13.7 % Eos % (Auto) 0.7 % Baso % (Auto) 0.1 % Immature Gran # (Auto) 0.01 (0.00-0.02) K/uL Neut # (Auto) 8.08 H (1.4-6.5) K/uL Lymph # (Auto) 0.46 L (1.2-3.4) K/uL Barber # (Auto) 1.37 H (0.11-0.59) K/uL Eos # (Auto) 0.07 (0-0.5) K/uL Baso # (Auto) 0.01 (0-0.2) K/uL ESR (0-14) mm/hr Sodium (136-145) mmol/L Potassium (3.5-5.1) mmol/L Chloride (98-107) mmol/L Carbon Dioxide (21-32) mmol/L Anion Gap (3-11) BUN (7-18) mg/dl Creatinine (0.6-1.4) mg/dl POC Creatinine (0.6-1.3) mg/dl Est Cr Clr Drug Dosing ml/min Est GFR ( Amer) Est GFR (Non-Af Amer) BUN/Creatinine Ratio (10-20) Glucose (70-99) mg/dl Calcium (8.5-10.1) mg/dl Total Bilirubin (0.2-1) mg/dl AST (15-37) U/L ALT (12-78) U/L Alkaline Phosphatase (45-117) U/L C-Reactive Protein (0-0.29) mg/dl Total Protein (6.4-8.2) gm/dl Albumin (3.4-5.0) gm/dl Globulin (2.5-4.0) gm/dl Albumin/Globulin Ratio (0.9-2) Procalcitonin (0-0.5) ng/ml Nasal Screen MRSA (PCR) (Negative) Diagnostic Findings CT facial bones w con CLINICAL HISTORY: 19 years-old Male presenting with right periorbital infection, redness and swelling, yellow drainage from the skin near the right eye, swollen eye. TECHNIQUE: Multidetector CT of the face was performed after the administration of intravenous contrast. IV contrast: 92 mL of Optiray 320. One or more dose lowering techniques were used consistent with the principles of ALARA (as low as reasonably achievable), including automatic exposure control, mA or kV adjustment to individual patient size, and/or use of iterative reconstruction. COMPARISON: None. CT DOSE (mGy.cm): The estimated cumulative dose is 248.65 mGy.cm. FINDINGS: Fund Accounting Manager topogram: Unremarkable. Extensive superficial soft tissue swelling and infiltration of the right face extending from the premandibular region to the right frontal scalp. This is primarily centered in the right periorbital region. There is a significant de gree of soft tissue fluid in the periorbital region on the right. There is also fluid and gas immediately superficial to the right globe possibly contained within the eyelids. The right globe itself is normal. No post septal fat infiltration. The contents of the right orbit are normal. The left orbit is also normal. Patent vasculature. Grossly patent right cavernous sinus allowing for the phase of contrast. Limited intracranial evaluation within normal limits. Paranasal sinuses and mastoid air cells clear apart from trace polypoid mucosal thickening in the left maxillary sinus. The left mandibular central incisor is absent with the remainder of the teeth intact. Subcentimeter cervical lymph nodes are likely reactive. Visualized portion of the aerodigestive tract patent. No filtration of the deeper fat planes. IMPRESSION: 1. Exuberant inflammatory changes in the right periorbital region and right face compatible with preseptal cellulitis and phlegmonous changes. 2. The fluid and gas immediately anterior to the right globe is likely contained within the eyelids. 3. No evidence to suggest post septal/orbital cellulitis. (1) Periorbital cellulitis Laterality: right Qualified Code(s): L03.213 - Periorbital cellulitis
[2020-01-02] MEDS: AMPICILLIN/SULBACTAM SOD 3,000 MG in 0.9 % SODIUM CHLORIDE 100 ML IV SCH ×2 (14:34→20:10)
[2020-01-02] MEDS ORDERED: LACTATED RINGER'S 1,000 ML IV SCH (14:45)
--- NOTE | 2020-01-02 14:47 | Hospitalist Progress Note ---
Date of Service January 02, 2020 Assessment & Plan (1) Periorbital cellulitis: 19-year-old otherwise healthy male presents with 2 days of worsening right periorbital cellulitis. Now s/p abscess drainage on Ampicillin sulbactam. Sepsis in the setting of right periorbital cellulitis with abscess CT face: Right periorbital and right facial region diffuse skin thickening and soft tissue swelling/edema. Small enhancing fluid collection with a single focus of gas anterior to R globe [id number] concerning for abscess. No retro- orbital fat stranding or fluid -Febrile to 38.8 and tachycardic to 120s with normal BP and WBC ct -Wound Cx pending -ESR 37, CRP 4.4, procal 0.17, nasal MRSA negative -S/p abscess drainage by Dr. Gonzalez, ENT Received Clindamycin and Vancomycin IV initially now on Amp/sulbactam -Pain control: Morphine 2 mg every 3 hours as needed for pain and Tylenol 650mg every 4 hours -On IVFs LR 125cc/hr -Continue to monitor Diet: Regular diet IVF: LR 125cc/hr DVT prophylaxis SCDs Position: Med/surg (2) Facial abscess: Admission and Anticipated Discharge Date Admission Date: January 02, 2020 Supervising Physician Co-Signing Physician Notes Resident Physician Supervision Note: I independently interviewed and examined the patient and verified the barillas history and physical, reviewed labs and image studies, discussed the case with the resident Dr. Roger and agree with the findings and care plan. Subjective This AM pt was resting in bed when examined and reported persistent difficulty opening R eye, and pain. Continues to have drainage from lower eyelid region. Otherwise denied any headache, cp, sob, abdominal pain, nausea, vomiting, dysuria Review of Systems Review of Systems: As per HPI Physical Exam Physical Exam: General: In NAD HEENT: R eye: severe periorbital edema and TTP, unable to open R eye, edema/erythema extends to R maxillary region, and nasal septum, draining fistula on R check with lower eye lid fluctuance Neuro: A&O x 4 Pulm: CTAB equal breath sounds bilaterally CV: RRR, no m/r/g Abdomen:+BS, no TTP in all quadrants, non-distended LE: no LE edema, no calf TTP Results & Data ([facility]) Vital Signs (Past 12 Hours) Vital Signs Temp Pulse Pulse Pulse Resp BP Pulse Ox 01/02/20 14:00 36.9 C 112 H 16 109/61 99 01/02/20 13:30 97 H 16 105/60 98 01/02/20 12:30 37.4 C 88 18 98/57 L 97 01/02/20 12:03 37.6 C H 103 H 20 118/64 96 01/02/20 11:35 37.9 C H 102 H 20 106/48 L 96 01/02/20 11:25 103 H 18 91/50 L 95 01/02/20 11:15 103 H 19 92/47 L 98 01/02/20 11:05 105 H 19 89/49 L 92 01/02/20 10:58 38.0 C H 108 H 20 98/49 L 98 01/02/20 09:21 39 C H 111 H 20 127/67 99 01/02/20 08:00 38.8 C H 111 H 18 119/71 97 01/02/20 04:48 107 H 16 98 01/02/20 03:04 37.5 C 125 H 16 121/65 98 Resident Activity Tracking Resident Involvement: Resident Care Provided Care Provided: Adult Hospital Medicine (1) Periorbital cellulitis Laterality: right Qualified Code(s): L03.213 - Periorbital cellulitis
[2020-01-02] MEDS: SODIUM CHLORIDE 0.9% 1000ML 1,000 ML IV SCH (21:00)
[2020-01-03] MEDS: AMPICILLIN/SULBACTAM SOD 3,000 MG in 0.9 % SODIUM CHLORIDE 100 ML IV SCH ×2 (00:57→06:16)
[2020-01-03] MEDS: SODIUM CHLORIDE 0.9% 1000ML 1,000 ML IV SCH (06:16)
[2020-01-03 06:22] LABS: Basophils # (auto) 0.01 K/uL (0-0.2); Basophils % (auto) 0.1 %; Eosinophils # (auto) 0.05 K/uL (0-0.5); Eosinophils % (auto) 0.5 %; Hematocrit (blood only) 38.3 % (42-52); Immature Granulocytes # (auto) 0.02 K/uL (0.00-0.02); Immature Granulocytes % (auto) 0.2 %; Lymphocytes % (auto) 12.4 %; Mean Corpuscular Hemoglobin 31.7 pg (25-34); Mean Corpuscular Hgb Conc 33.9 g/dL (32-36); Mean Corpuscular Volume 93.4 fL (80-100); Mean Platelet Volume 10.1 fL (7.4-10.4); Monocytes # (auto) 1.46 K/uL (0.11-0.59); Monocytes % (auto) 15.1 %; Neutrophils # (auto) 6.95 K/uL (1.4-6.5); Neutrophils % (auto) 71.7 %; Platelet Count 191 K/uL (130-400); RDW Coefficient of Variation 12.7 % (11.5-14.5); RDW Standard Deviation 43.2 fL (36.4-46.3); White Blood Count 9.69 K/uL (4.8-10.8)
[2020-01-03 06:50] LABS: Calcium 8.5 mg/dl (8.5-10.1); Creatinine Clr Calc Pharmacy 120.8 ml/min; Est GFR (African American) 122.7; Est GFR (Non-African American) 105.8; Potassium 3.9 mmol/L (3.5-5.1)
[2020-01-03] MEDS: MoRPHine SULFATE 2 MG/ML CARP IV PRN ×3 (08:19→23:58)
--- NOTE | 2020-01-03 08:21 | Surgery Progress Note ---
Date of Service January 03, 2020 Assessment & Plan (1) Periorbital cellulitis: iodoform advanced 1 inch, cleaned (2) Facial abscess: maintain antibiotics IV for staph. Subjective Still swollen and painful Physical Exam Constitutional: + ill appearing Eyes: + eyelid abnormality (right eye swollen shuts), + conjunctival abnormality (left conjuntival swelling) and + abnormal light reflex (still unable to see right eye) Results & Data Vital Signs (Past 12 Hours) Vital Signs Temp Pulse Resp BP Pulse Ox 01/03/20 07:55 37.1 C 88 14 129/79 97 01/03/20 03:11 37.4 C 89 16 136/65 98 01/02/20 22:58 37.2 C 99 H 18 112/64 97 01/02/20 20:37 37.0 C 97 H 16 122/73 97 (1) Periorbital cellulitis Laterality: right Qualified Code(s): L03.213 - Periorbital cellulitis
[2020-01-03] MEDS ORDERED: VANCOMYCIN CONSULT ACTIVE PRN (09:03)
--- NOTE | 2020-01-03 09:06 | Hospitalist Progress Note ---
Date of Service January 03, 2020 Assessment & Plan (1) Periorbital cellulitis: Alvin is a 19-year-old otherwise healthy male who presented with 2 days of worsening right periorbital cellulitis. Sepsis in the setting of right periorbital cellulitis with abscess CT face: Right periorbital and right facial region diffuse skin thickening and soft tissue swelling/edema. Small enhancing fluid collection with a single focus of gas anterior to R globe [id number] concerning for abscess. No retro- orbital fat stranding or fluid -S/p abscess drainage day [address] Gonzalez, ENT -Wound culture growing MRSA switch antibiotics from Unasyn back to vancomycin. MRSA is sensitive to Bactrim, anticipate eventual discharge on oral Bactrim -Pain control: Morphine 2 mg every 3 hours as needed for pain and Tylenol 650mg every 4 hours -Last fever on 01/02 at 11 AMcontinue to trend fever curve -Discontinue IV fluids given improvement in vital signs, and tolerating p.o. intake Code status: FULL DVT prophylaxis: Low risk, SCDs Disposition: remains on Med/surg. Anticipate discharge on Sunday at earliest (2) Facial abscess: Admission and Anticipated Discharge Date Admission Date: January 02, 2020 Supervising Physician Co-Signing Physician Notes Resident Physician Supervision Note: I independently interviewed and examined the patient and verified the barillas history and physical, reviewed labs and image studies, discussed the case with the resident Dr. Sierra and agree with the findings and care plan. Subjective Alvin reports he feels much better today. He reports a decrease in the swelling on his face. He states that his pain has improved, and that the pain medication is helping him. He is still, however, unable to open his right eye. He is tolerating his diet without difficulty. Review of Systems Constitutional: no fever, no chills, no fatigue and no anorexia Respiratory: no cough and no dyspnea Cardiovascular: no chest pain Gastrointestinal: no abdominal pain, no vomiting and no change in bowel habits Physical Exam Constitutional: WD/WN, vitals as above Eyes: Unable to open right eye due to swelling ENMT: Extensive erythema and swelling noted to right maxillary region, exte nding up into the periorbital region. Dressing in place. Respiratory: normal respiratory effort, lungs clear to auscultation Cardiovascular: RRR, no murmur, no edema Gastrointestinal (Abdomen): normal bowel sounds, soft, nontender, no hepatosplenomegaly Results & Data ([facility]) Vital Signs (Past 12 Hours) Vital Signs Temp Pulse Resp BP Pulse Ox 01/03/20 07:55 37.1 C 88 14 129/79 97 01/03/20 03:11 37.4 C 89 16 136/65 98 01/02/20 22:58 37.2 C 99 H 18 112/64 97 Resident Activity Tracking Resident Involvement: Resident Care Provided Care Provided: Adult Hospital Medicine (1) Periorbital cellulitis Laterality: right Qualified Code(s): L03.213 - Periorbital cellulitis
[2020-01-03] MEDS ORDERED: VANCOMYCIN TROUGH ONE ×2 (09:30→15:30)
--- NOTE | 2020-01-03 09:51 | Pharmacy Report ---
Pharmacy Abx Dose Progress Nt - Date of Service January 03, 2020 - Pharmacy Dosing Scope The patient is currently receiving the following antimicrobial agents per Pharmacy consult: VANCOMYCIN - Objective Vital Signs (Past 12hrs): Vital Signs Temp Pulse Resp BP Pulse Ox 01/03/20 07:55 37.1 C 88 14 129/79 97 01/03/20 03:11 37.4 C 89 16 136/65 98 01/02/20 22:58 37.2 C 99 H 18 112/64 97 Lab Results (24hrs): Laboratory Tests (24 Hours) 01/03/20 01/03/20 05:58 05:58 WBC 9.69 Neut # (Auto) 6.95 H Creatinine 1.01 Est Cr Clr Drug Dosing 120.8 Micro Results: 01/01/20 23:30 Gram Stain - Final Face Wound Culture - Final Staph aureus MRSA 01/02/20 10:37 Gram Stain - Final Face Aerobic and Anaerobic Culture - Pending - Risk Factors for Resistance * Incarcerated - Assessment & Plan Assessment 19 year old M receiving initiated on IV Vanco 01/02 then switched to Unasyn. Pt switched back to vanco today in light of + MRSA facial cultures. Plan Patient meets criteria for vancomycin AUC dosing nomogram AUC/FERMIN is the preferred PK/PD target for vancomycin * Target AUC/FERMIN = 400-600 * AUC guided dosing is effective and associated with decreased risk of nephrotoxicity * Will order a trough level prior to the 5th dose to ensure safe and therapeutic levels. Pharmacy will continue to follow and will adjust dose/frequency as necessary. Thank you.
[2020-01-03] MEDS ORDERED: VANCOMYCIN HCL 1,750 MG in SODIUM CHLORIDE 0.9% 500 ML IV ONE (10:00)
[2020-01-03] MEDS: VANCOMYCIN HCL 1,250 MG in SODIUM CHLORIDE 0.9% 250 ML IV SCH (17:41)
[2020-01-03] MEDS ORDERED: VANCOMYCIN HCL 1,250 MG in SODIUM CHLORIDE 0.9% 500 ML IV SCH (18:00)
[2020-01-04] MEDS: VANCOMYCIN HCL 1,250 MG in SODIUM CHLORIDE 0.9% 250 ML IV SCH ×3 (01:57→18:01)
[2020-01-04 07:13] LABS: Creatinine Clr Calc Pharmacy 112.9 ml/min; Est GFR (African American) 113.1; Est GFR (Non-African American) 97.6
--- NOTE | 2020-01-04 07:32 | Hospitalist Progress Note ---
Date of Service January 04, 2020 Assessment & Plan (1) Periorbital cellulitis: Alvin is a 19-year-old otherwise healthy male who presented with 2 days of worsening right periorbital cellulitis. Sepsis in the setting of right periorbital cellulitis with abscess CT face: Right periorbital and right facial region diffuse skin thickening and soft tissue swelling/edema. Small enhancing fluid collection with a single focus of gas anterior to R globe [id number] concerning for abscess. No retro- orbital fat stranding or fluid -S/p abscess drainage day [address] Gonzalez, ENT -improving clinically, able to open right eye today -per Dr. Gonzalez, incision should be cleaned with hydrogen peroxide and dressing changed 4x/daily ->[facility], pt will remain hospitalized until Sunday for wound care -Wound culture growing MRSA continue vancomycin (day 2) -MRSA is sensitive to Bactrim, anticipate eventual discharge on oral Bactrim -Last fever on 01/02 at 11 AM - afebrile since -> can transition to p.o. bactrim on 01/05/2020 -> anticipate abx treatment for at least 7 days, can extend if erythema/swelling are still present by day 7 -Pain control: Morphine 2 mg every 3 hours as needed for pain and Tylenol 650mg every 4 hours Code status: FULL DVT prophylaxis: Low risk, ambulatory, SCDs Disposition: remains on Med/surg. Anticipate discharge on Sunday (2) Facial abscess: Admission and Anticipated Discharge Date Admission Date: January 02, 2020 Supervising Physician Co-Signing Physician Notes Resident Physician Supervision Note: I independently interviewed and examined the patient and verified the barillas history and physical, reviewed labs and image studies, discussed the case with the resident Dr. Sierra and agree with the findings and care plan. Subjective Alvin reports he feels the swelling around his eye has continued to improve. He notes since last night, he is able to open his right eye slightly, and has blurry vision when he does so. He denies fever, chills. He has been eating well. He is ambulating without difficulty. Review of Systems Constitutional: no fever and no anorexia Respiratory: no cough Cardiovascular: no chest pain Physical Exam Constitutional: WD/WN, vitals as above Respiratory: normal respiratory effort, lungs clear to auscultation Cardiovascular: RRR, no murmur, no edema Skin: erythema and swelling over right periorbital region. improved from yesterday. patient able to open right eye slightly and endorses blurry vision when he does so + drainage noted around R eye + dressing in place Results & Data ([facility]) Vital Signs (Past 12 Hours) Vital Signs Temp Pulse Resp BP Pulse Ox 01/03/20 23:25 37.0 C 87 16 134/80 97 Resident Activity Tracking Resident Involvement: Resident Care Provided Care Provided: Adult [facility] (1) Periorbital cellulitis Laterality: right Qualified Code(s): L03.213 - Periorbital cellulitis
[2020-01-04] MEDS: MoRPHine SULFATE 2 MG/ML CARP IV PRN ×3 (08:31→22:12)
--- NOTE | 2020-01-04 08:33 | Surgery Progress Note ---
Date of Service January 04, 2020 Assessment & Plan (1) Periorbital cellulitis: Finally better, continue Vancomycin for MRSA (2) Facial abscess: I probed open abcess cavity with Qtip and peroxide and advanced iodoform, instructed nursing Subjective Finally able to open eye but only a slit and able to see. Physical Exam Constitutional: + ill appearing Eyes: + eyelid abnormality (still swollen but less so, less tender, able to see when lid opened manuall) Results & Data Vital Signs (Past 12 Hours) Vital Signs Temp Pulse Resp BP BP Pulse Ox 01/04/20 07:51 37 C 92 H 16 126/75 97 01/03/20 23:25 37.0 C 87 16 134/80 97 (1) Periorbital cellulitis Laterality: right Qualified Code(s): L03.213 - Periorbital cellulitis
[2020-01-05] MEDS ORDERED: VANCOMYCIN TROUGH ONE (01:30)
[2020-01-05] MEDS: VANCOMYCIN HCL 1,250 MG in SODIUM CHLORIDE 0.9% 250 ML IV SCH ×2 (01:36→09:01)
[2020-01-05 01:49] LABS: Creatinine Clr Calc Pharmacy 120.8 ml/min; Est GFR (African American) 122.7; Est GFR (Non-African American) 105.8
--- NOTE | 2020-01-05 07:56 | Surgery Progress Note ---
Date of Service January 05, 2020 Assessment & Plan (1) Facial abscess: much better, will D/C peroxide and probing (2) Periorbital cellulitis: improved, start cortisporin ophthalmic ointment, will sign off for now, swelling should subside and still be ready for discharge Wed., please call me if any increase in swelling Subjective Improved, able to blink right eye, vision good, no diplopia Physical Exam Constitutional: WD/WN, vitals as above Eyes: + eyelid abnormality (much less swollen, vision good) and PERRL ENMT: incision opened with Qtip and H2O2, no sign of pus, iodoform gone Results & Data Vital Signs (Past 12 Hours) Vital Signs Temp Pulse Resp BP BP Pulse Ox 01/05/20 06:57 36.8 C 83 16 118/74 99 01/04/20 23:28 36.5 C 79 16 139/81 98 (1) Periorbital cellulitis Laterality: right Qualified Code(s): L03.213 - Periorbital cellulitis
--- NOTE | 2020-01-05 08:28 | Anesthesiology Progress Note ---
Date of Service January 05, 2020 Anesthesia Post Procedure Vital Signs Vital Signs: Temp Pulse Resp BP BP Pulse Ox 01/05/20 06:57 36.8 C 83 16 118/74 99 01/04/20 23:28 36.5 C 79 16 139/81 98 01/04/20 15:51 37.1 C 74 18 117/69 99 Pain Intensity Right Eye: Pain Intensity: 7 Notes Mental Status: alert / awake / arousable and participated in evaluation Patient Amnestic to Procedure: Yes Nausea / Vomiting: adequately controlled Pain: adequately controlled Airway Patency, RR, SpO2: stable & adequate BP & HR: stable & adequate Hydration State: stable & adequate Anesthetic Complications: no major complications apparent and Pt Satisfied with anesthetic care
[2020-01-05] MEDS: NEOMYC/POLYMYX/BACITR/HC OP OI 3.5 GM TUBE OP SCH ×2 (09:01→21:55)
--- NOTE | 2020-01-05 10:53 | Pharmacy Report ---
Pharmacy Abx Dose Short Note - Date of Service January 05, 2020 - Assessment & Plan Assessment 19 year old M receiving vancomycin for treatment of MRSA periorbital cellulitis Day # 3 of antimicrobial therapy. Of note, one of the MRSA isolates has an FERMIN of 2 for vancomycin. This is associated with increased likelihood of treatment failure. Should consider alternative agent such as sulfamethoxazole/trimethoprim based on available susceptibility data. Plan Vancomycin * Trough level of 15.5 mcg/mL is therapeutic * Continue dose of 1250 mg IV every 8 hours * Goal trough level for cellulitis : 10 to 20 mcg/mL * Will order follow-up trough if patient is to remain on vancomycin Pharmacy will continue to follow and will adjust dose/frequency as necessary. Thank you.
--- NOTE | 2020-01-05 14:57 | Hospitalist Progress Note ---
Date of Service January 05, 2020 Assessment & Plan (1) Periorbital cellulitis: Alvin is a 19-year-old otherwise healthy male who presented with 2 days of worsening right periorbital cellulitis. Hospitalized currently for wound dressings which would not be able to be done at [facility], anticpate discharge on SunJan 07 Sepsis in the setting of right periorbital cellulitis with abscess CT face: Right periorbital and right facial region diffuse skin thickening and soft tissue swelling/edema. Small enhancing fluid collection with a single focus of gas anterior to R globe [id number] concerning for abscess. No retro- orbital fat stranding or fluid -S/p abscess drainage day [address] Gonzalez, ENT -improving clinically, able to open right eye, denies changes to vision -per Dr. Gonzalez, re: facial abscess "much better, will D/C peroxide and probing". Re: pre-septal cellulitis: "improved, start cortisporin ophthalmic ointment, will sign off for now, swelling should subside and still be ready for discharge Sun., please call me if any increase in swelling" -Wound culture growing MRSA IV vancomycin for 2 days, will transition to PO Bactrim today 01/05 for at least 7 days of treatment. -Pain control: Morphine 2 mg every 3 hours as needed for pain and Tylenol 650mg every 4 hours Code status: FULL DVT prophylaxis: Low risk, ambulatory, SCDs Disposition: remains on Med/surg. Anticipate discharge on SundayJan 07 (2) Facial abscess: Admission and Anticipated Discharge Date Admission Date: January 02, 2020 Supervising Physician Co-Signing Physician Notes I personally examined the patient and verified all barillas points of history and exam, discussed case, and agree with decision making with Dr Asencio. Feeling okay. No new complaints. Vitals noted, in general he is awake and alert pleasant no distress. His right lower eyelid is quite swollen and purplish, not extremely tender no crepitus, open wound where I&D was performed no exudate. Facial cellulitispreseptalMRSAimproving nicely. Trial of Bactrim as oral antibiotic to finish out treatment. Continue local wound care. Per ENT, will need to be here another 2 days or so before it is safe to return him, given that his snf environment apparently has no infirmary. Otherwise as above Subjective Alvin states he feels like the eye is improving today. Has been able to move the eyeball and denies changes to vision. Also denies any headache, cough, runny nose, sore throat, dizziness, weakness, SOB, palpitations, abdominal pain, diarrhea or constipation, swelling in hands or feet or numbness or tingling anywhere. Review of Systems Review of Systems: All systems reviewed & are unremarkable except as noted in Subjective Physical Exam Physical Exam: General: Alert, oriented, sitting up in bed. No acute distress Skin: noted erythema to right eye Psych: Appropriate mood and affect Neuro: moves extremities appropriately HEENT: Right eye red, swollen, slit-like opening of eyelid with ointment on top. No noted crusting or discharge. Chest: Nontender to palpation. CV: RRR, Normal s1, s2. No murmurs appreciated Resp: Breath sounds clear bilaterally, no increased effort of breathing. No crackles/rhonchi/rales. Abdomen: Soft, nontender, nondistended. No guarding. No organomegaly appreciated. Extremities: No edema in lower extremities bilaterally. Results & Data ([facility]) Vital Signs (Past 12 Hours) Vital Signs Temp Pulse Resp BP Pulse Ox 01/05/20 06:57 36.8 C 83 16 118/74 99 Resident Activity Tracking Resident Involvement: Resident Care Provided Care Provided: Adult Hospital Medicine (1) Periorbital cellulitis Laterality: right Qualified Code(s): L03.213 - Periorbital cellulitis
--- NOTE | 2020-01-05 18:08 | Billing Data ---
Date of Service January 05, 2020 Coding Level of Care Code 33907 Subseq Hosp Care Lvl 2
[2020-01-05] MEDS: SULFAMETHOXAZOLE/TRIMETHOPRIM DS 800/160MG TAB PO SCH (21:55)
[2020-01-06] MEDS: NEOMYC/POLYMYX/BACITR/HC OP OI 3.5 GM TUBE OP SCH ×2 (07:49→20:41)
[2020-01-06] MEDS: SULFAMETHOXAZOLE/TRIMETHOPRIM DS 800/160MG TAB PO SCH ×2 (07:49→22:20)
--- NOTE | 2020-01-06 09:38 | Hospitalist Progress Note ---
Date of Service January 06, 2020 Assessment & Plan (1) Periorbital cellulitis: Alvin is a 19-year-old otherwise healthy male who presented with 2 days of worsening right periorbital cellulitis. Hospitalized currently for wound care which would not be able to be done at [facility], anticipate discharge on SunJan 07 Sepsis in the setting of right periorbital cellulitis with abscess CT face: Right periorbital and right facial region diffuse skin thickening and soft tissue swelling/edema. Small enhancing fluid collection with a single focus of gas anterior to R globe [id number] concerning for abscess. No retro- orbital fat stranding or fluid -S/p abscess drainage day [address] Gonzalez, ENT -improving clinically, able to open right eye, denies changes to vision -per Dr. Gonzalez 01/05, re: facial abscess "much better, will D/C peroxide and probing". Re: pre-septal cellulitis: "improved, start cortisporin ophthalmic ointment, will sign off for now, swelling should subside and still be ready for discharge Sun., please call me if any increase in swelling" -Wound culture growing MRSA IV vancomycin for 2 days, will transition to PO Bactrim today 01/05 for at least 7 days of treatment. -Continue bactrim PO. -Pain control: Morphine discontinued as pt has not required it since the . Continue Tylenol 650mg every 4 hours PRN. Code status: FULL DVT prophylaxis: Low risk, ambulatory, SCDs Disposition: remains on Med/surg. Anticipate discharge on SundayJan 07 (2) Facial abscess: Admission and Anticipated Discharge Date Admission Date: January 02, 2020 Supervising Physician Co-Signing Physician Notes I personally examined the patient and verified all barillas points of history and exam, discussed case, and agree with decision making with Dr Asencio. resting comfortably. guards note he has been moving eye more. Vitals noted, in general he is sleeping comfortably no distress. His right lower eyelid is less swollen and purple than before, appearing to improve quite a bit over last 24hrs. Facial cellulitispreseptalMRSAimproving nicely. continue Bactrim as oral antibiotic to finish out treatment. Continue local wound care. Per ENT, here to tomorrow before it is safe to discharge him, given that his [facility] environment apparently has no infirmary. Otherwise as above Subjective Alvin seen this AM. No acute events overnight. Denies fevers, chills or night sweats. Staets vision is still unchanged in the right eye, does not hurt with eye movement. Review of Systems Review of Systems: All systems reviewed & are unremarkable except as noted in Subjective Physical Exam Physical Exam: General: Alert, oriented, sitting up in bed. No acute distress Skin: noted erythema to right eye Psych: Appropriate mood and affect Neuro: moves extremities appropriately HEENT: Right eye red, swollen, slit-like opening of eyelid with ointment on top. No noted crusting or discharge. Chest: Nontender to palpation. CV: RRR, Normal s1, s2. No murmurs appreciated Resp: Breath sounds clear bilaterally, no increased effort of breathing. No crackles/rhonchi/rales. Abdomen: Soft, nontender, nondistended. No guarding. No organomegaly appreciated. Extremities: No edema in lower extremities bilaterally. Results & Data ([facility]) Vital Signs (Past 12 Hours) Vital Signs Temp Pulse Resp BP Pulse Ox 01/06/20 07:37 36.8 C 81 18 124/79 98 01/05/20 22:59 36.9 C 108 H 16 115/72 99 Resident Activity Tracking Resident Involvement: Resident Care Provided Care Provided: Adult Hospital Medicine (1) Periorbital cellulitis Laterality: right Qualified Code(s): L03.213 - Periorbital cellulitis
--- NOTE | 2020-01-06 16:44 | Billing Data ---
Date of Service January 06, 2020 Coding Level of Care Code 15893 Subseq Hosp Care Lvl 1
[2020-01-07 07:45] VITALS: BP 126/82; PULSE 81; TEMP 97.9; O2SAT 98
[2020-01-07] MEDS: SULFAMETHOXAZOLE/TRIMETHOPRIM DS 800/160MG TAB PO SCH (07:51)
[2020-01-07] MEDS: NEOMYC/POLYMYX/BACITR/HC OP OI 3.5 GM TUBE OP SCH (07:51)
--- NOTE | 2020-01-07 10:00 | Discharge Summary ---
Date of Service January 07, 2020 Admission HPI Per Admitting Provider Alvin is a 18-year-old male inmate of [facility] with no past medical history who presents with right jeremy-orbital cellulitis. He reports that on Sunday he had a pimple around his eye and attempted to pop it, but had difficulty getting pus out of it. He reports that he tried very hard and applied a lot of pressure to pop it but he had recently been cleaning his boots so he thinks he rubbed both blue kazakh and dirt into it. Following that it became painful and red, and the swelling gradually increased until it rapidly worsened day of presentation to the emergency department. He endorses pain in his right eye on extraocular movements. He is unable to see out of his right eye due to swelling, unable to open his eyelids. He has been nauseous. He denies diarrhea or constipation. Denies fever, chills, sweats. No shortness of breath or chest pain. Denies other symptoms. Medical history: None Medical allergies: Denies Surgical history: None Social: Inmate of [facility]. No alcohol use in over a year. Denies tobacco use. Denies recreational drug use. Reports his medical decision-maker should he be capacitated is Hobsontanesha Wright (mother of his child) who can be reached at [phone]. CODE STATUS: Full code Admission Exam Per Admitting Provider General: A&Ox3. Cooperative. HEENT: Right eye with prominent periorbital swelling, erythema, and warmth. Infraorbital skin lesion draining clear and purulent material. Fluctuance appreciated without crepitus. Patient unable to open eye on his own, with gentle physical lid separation pupil is visualized and is reactive, non-clouded. EOM intact but with pain in the right eye. Pulm: CTAB A&P. -wheezes, -rales, -rhonchi. Symmetrical chest rise. No increase work of breathing. No respiratory distress. Cardiac: RRR, -mrg. Radial pulses intact and symmetrical. Abdominal: Nontender, nondistended, soft. BS present. Principal Diagnosis Pre-septal cellulitis of the right eye Discharge Exam General: Alert, oriented, sitting up in bed. No acute distress Skin: noted erythema to right eye Psych: Appropriate mood and affect Neuro: moves extremities appropriately HEENT: Right eye still red, swollen but improved, greater opening of eyelid with ointment on top. No noted crusting or discharge. EOMI Chest: Nontender to palpation. CV: RRR, Normal s1, s2. No murmurs appreciated Resp: Breath sounds clear bilaterally, no increased effort of breathing. No crackles/rhonchi/rales. Abdomen: Soft, nontender, nondistended. No guarding. No organomegaly appreciated. Extremities: No edema in lower extremities bilaterally. Discharge Data Allergies Allergy/AdvReac Type Severity Reaction Status Date / Time No Known Allergies Allergy Unverified 01/02/20 01:44 Consultations 01/02/20 01:21 ED Decision to Admit Stat 01/02/20 03:01 Consult General Surgery Routine 01/02/20 08:27 Consult Otolaryngology (Head and Neck) Routine Procedures Performed Operation Date: 01/02/20 09:40 Actual Procedures p Incision and Drainage of right facial abscess(Right) - Yeni Gonzalez MD Ordered Studies 01/01/20 23:32 CT facial bones w con Urgent Hospital Course (1) Periorbital cellulitis: Alvin is a 19-year-old otherwise healthy male who presented with 2 days of worsening right periorbital cellulitis. Admitted on 01/02/2020 and discharged on 01/07/2020 back to the [facility] facility. Sepsis in the setting of right periorbital cellulitis with abscess CT face 01/01/2020, showed right periorbital and right facial region diffuse skin thickening and soft tissue swelling/edema. Small enhancing fluid collection with a single focus of gas anterior to R globe [id number] concerning for abscess. No retro-orbital fat stranding or fluid. -wound culture grew MRSA -S/p abscess drainage day [address] Gonzalez. -Received peroxide and probing of facial abscess daily after I&D by Dr. Gonzalez for an additional 2 days. -Day of discharge was only requiring Cortisporin ophthalmic ointment application to the right eye twice daily. -Please continue twice daily cortisporin application after discharge until infection resolved. -was treated with IV Vancomycin for 2 days, PO Bactrim for 3 days. -Discharged with an additional 5 days of Bactrim for a total of 10 days of treatment. Please take as directed. -Pain was controlled with morphine and tylenol 650mg q4h as needed. -Did not require pain control on day of discharge, nor for the prior two days. -Has a followup with Dr. Gonzalez scheduled on 01/12/2020 at 10AM. (2) Facial abscess: Total Time Total Time Spent Total Time Spent (In Minutes): See attending attestation Discharge Plan Discharge Items Patient Disposition: [facility] Facility Reason For Visit: R PERIORBITAL CELLULITIS Discharge Diagnosis: Right pre-septal cellulitis Activity: Per Instructions section Non-emergency contact: Primary Care Provider Call non-emergency contact if: your symptoms worsen, your pain is worsening, you have a fever, your wound has increased redness and your wound has increased drainage Follow-up/Referrals: Yeni Gonzalez MD [Surgeon] - 01/12/20 10:00 am (Please, follow up with Dr. Gonzalez early next week. *The office is located at [address] [place] [address] in [place]. To schedule the appointment, call the office at [phone].) Nicol MARIA [Primary Care Provider] - Diet: Regular Addtl Attending Provider Instructions: FACILITY DISCHARGE INSTRUCTIONS: Alvin is a 19-year-old otherwise healthy male who presented with 2 days of worsening right periorbital cellulitis. Right periorbital cellulitis with abscess -Abscess incised and drained by ENT. -Continue application of the Cortisporin ophthalmic ointment twice a day to the right eye until infection resolved, per ENT recommendations. -Followup appointment scheduled with BHAVYA Leon on 01/12/2020 at 10AM at his office. It is important that this appointment is kept. -Received 2 days of IV Vancomycin and 3 days of PO Bactrim. Continue PO Bactrim for an additional 5 more days for a total of 10 days of treatment. -If signs of worsening infection (increased redness, discharge, new onset fevers, chills or night sweats) after 10 day course of treatment, can extend antibiotic course. -Currently not requiring medications for pain control on discharge. Pending Studies at Discharge: No Stand-Alone Forms: [employer] Skilled Items Patient informed of condition?: Yes Discharge Level of Care: Other Communicable Disease: No Discharge Prognosis: Stable Lines: None Urinary Catheter: No Medications and DC Order Prescriptions: New sulfamethoxazole-trimethoprim 800-160 mg Tablet 1 tab PO Q12 5 Days Qty: 10 RF: 0 [id number]-HC 3.5-400-10,000 mg-unit/g-1% Ointment 1 applic ophthalmic (eye) BID Qty: 15 RF: 0 Continued ibuprofen 600 mg Tablet 600 mg PO QID RF: 0 Discontinued sulfamethoxazole-trimethoprim 800-160 mg Tablet 1 tab PO BID RF: 0 Discharge Orders: Discharge Order (Routine); Ordered 01/07/20 Ordered By: Rosio Asencio Admission Data Admit Date/Time: 01/02/20 02:25 Attending Provider: Rene Pyle Admit Provider: David He Primary Care Provider: Nicol MARIA Other Providers: Kieran Jarvis ; Cal Kaufman ; Yeni Gonzalez ; Fanny Sorto Other Interventions: Discharge Summary Assessment (RN) Last Done: 01/07/20 13:57 DC Date/Time DO NOT enter until pt leaves facility: 01/07/20 16:40 Supervising Physician Co-Signing Physician Notes Resident Physician Supervision Note: I was present with Dr. Rosio Asencio during the discharge history and exam. I discussed the case with the resident and agree with the findings and plan as documented in this discharge summary. Any exceptions or clarifications are listed here: none. 19yo [facility] inmate who presented with right jeremy-orbital cellulitis and right facial abscess. Received IV vancomycin and underwent ENT consultation by Dr Gonzalez. Dr Gonzalez ultimately took the patient to the OR for I & D of the right facial abscess. Cultures grew MRSA. Patient clinically improved with IV vancomycin and then po bactrim. The patient was hemodynamically stable throughout his stay. He NEVER had evidence of orbital cellulitis while here. He will complete 5 more days of oral bactrim after discharge. Topical abx ointment will also be applied to the right eye. Discharge exam: gen - nad eyes - extraocular movements are full & intact without pain/discomfort; PERRL; mild jeremy-orbital swelling and erythema only on right; left eye without erythema mouth - MMM heart - RRR, s1 s2 lungs - CTA b/l abd - soft NT ND BS+ ext - no edema In addition to oral bactrim he will have ENT f/u with Dr Gonzalez within 5 days of discharge. Documented By: Rene Pyle MD Resident Activity Tracking Resident Involvement: Resident Care Provided Care Provided: Adult Hospital Medicine
--- NOTE | 2020-01-08 04:46 | Billing Data ---
Date of Service January 07, 2020 Coding Level of Care Code D/C Day Management <30 mins
== END 2020-01-07 16:40 | DRG 603 ==
LOC: ED 23:09 → 3N 01-02 02:25 → SUATTDRO 01-02 02:25 → 3N 01-02 02:33